=== PATIENT | male | born 1980 | race Caucasian/White ===

== ENCOUNTER → 2018-04-20 | Outpatient (CLI) | payer OTHER ==
--- NOTE | 2018-04-20 22:31 | MR ---
EXAMINATION TYPE: MR shoulder RT wo con DATE OF EXAM: 04/20/2018 COMPARISON: None HISTORY: Right shoulder pain TECHNIQUE: Multiplanar, multisequence imaging of the right shoulder is performed without contrast. FINDINGS: Rotator Cuff: Rotator cuff tendons appear intact. No retraction is evident. Muscle signal appears nor mal. No suspicious signal transversing the tendons are evident. There is a small cyst at the distal s upraspinatus tendon insertion. Acromioclavicular Joint: Acromioclavicular junction appears intact. No significant hypertrophy is teressa dent. Note is made of some downward sloping of the acromion which can contribute to impingement syndr ome. Glenohumeral Joint: Intact. Significant degenerative change is not evident. Labrum: There is increased signal within the superior posterior glenoid labrum. Some internal derange ment may be present. Biceps Tendon: The long head of biceps is in normal location within bicipital groove. Bone marrow signal: No focal abnormal marrow signal is appreciated. Other: No additional significant abnormality is appreciated. IMPRESSION: 1. No suspicious rotator cuff tear. 2. Posterior superior glenoid labral internal derangement may be present.
== END | disposition home or self-care (01) ==
LOC: RADMRIMAIN 10:58
PROVIDERS: ATTEND Family Medicine
DX: M25.511 Pain in right shoulder (principal); G89.29 Other chronic pain

== ENCOUNTER 2020-10-07 12:38 | Emergency (ER) | payer OTHER ==
[2020-10-07 12:57] VITALS: RESP 16; TEMP 97.3
[2020-10-07] MEDS ORDERED: SODIUM CHLORIDE 0.9% 1,000 ML IV ONE (13:07)
[2020-10-07] MEDS ORDERED: SODIUM CHLORIDE 0.9% 500 ML 500 ML IV ONE (13:07)
[2020-10-07] MEDS ORDERED: diphenhydrAMINE 50 MG/ML 1 ML VIAL IVP STA (13:07)
[2020-10-07] MEDS ORDERED: METOCLOPRAMIDE 5 MG/ML 2 ML VIAL IVP STA (13:08)
--- NOTE | 2020-10-07 13:10 | ED ---
General Adult HPI - General Chief complaint: Headache Stated complaint: headache, numbness to hands Time Seen by Provider: 10/07/20 12:55 Source: patient, RN notes reviewed, old records reviewed Mode of arrival: wheelchair Limitations: no limitations - History of Present Illness Initial comments: This is a 40-year-old male who presents emergency Department complaining of a right-sided headache. Patient states he's had a few migraines in the past always never been worked up for migraines. Patient states headaches are as on the right side of forehead and again today. The right side of his head the intensity is a little worse than normal and that is why he came in. Patient states she also had some tingling to his fingers on both hands and this time. Patient states he was pretty anxious when that was occurring currently is not occurring he has no tingling or weakness no visual disturbance or speech disturbance. Patient states ever since he had cold. His frequency of headaches are worse. Patient denies any trauma or injury. Patient denies any neck pain. Patient states he is somewhat photophobic and he is nauseated but has not vomite d. - Related Data Allergies Allergy/AdvReac Type Severity Reaction Status Date / Time Pork/Porcine Containing Allergy Unknown Verified 10/07/20 12:57 Products Review of Systems ROS Statement: Those systems with pertinent positive or pertinent negative responses have been documented in the HPI. ROS Other: All systems not noted in ROS Statement are negative. Past Medical History Additional Past Medical History / Comment(s): migraines History of Any Multi-Drug Resistant Organisms: None Reported Past Surgical History: No Surgical Hx Reported Past Psychological History: No Psychological Hx Reported Smoking Status: Never smoker Past Alcohol Use History: Occasional Past Drug Use History: None Reported General Exam - General Exam Comments Initial Comments: GENERAL: Patient is well-developed and well-nourished. Patient is nontoxic and well- hydrated and is in mild distress. ENT: Neck is soft and supple. No significant lymphadenopathy is noted. Oropharynx is clear. Moist mucous membranes. Neck has full range of motion without eliciting any pain. Patient has no scalp tenderness. Patient has no sinus tenderness EYES: The sclera were anicteric and conjunctiva were pink and moist. Extraocular movements were intact and pupils were equal round and reactive to light. Eyelids were unremarkable. PULMONARY: Unlabored respirations. Good breath sounds bilaterally. No audible rales rhonchi or wheezing was noted. CARDIOVASCULAR: There is a regular rate and rhythm without any murmurs gallops or rubs. ABDOMEN: Soft and nontender with normal bowel sounds. SKIN: Skin is clear with no lesions or rashes and otherwise unremarkable. NEUROLOGIC: Patient is alert and oriented x3. Cranial nerves II through XII are grossly intact. Motor and sensory are also intact. Normal speech, volume and content. Symmetrical smile. MUSCULOSKELETAL: Normal extremities with adequate strength and full range of motion. LYMPHATICS: No significant lymphadenopathy is noted PSYCHIATRIC: Normal psychiatric evaluation. Limitations: no limitations Course Vital Signs 10/07/20 10/07/20 12:55 14:13 Temperature 97.3 F L Pulse Rate 74 53 L Respiratory 16 16 Rate Blood Pressure 109/76 112/73 O2 Sat by Pulse 100 100 Oximetry Medical Decision Making - Medical Decision Making Patient's CT of the brain shows no acute abnormality. Patient received Benadryl and Reglan and felt considerably better and the patient received Toradol and was feeling even more towards his baseline at this time. Patient states she still has a very slight headache but much improved. Patient was comfortable going home. Patient also received a liter and half of fluid. Disposition Clinical Impression: Migraine headache Disposition: HOME SELF-CARE Condition: Good Instructions (If sedation given, give patient instructions): Migraine Headache (ED) Additional Instructions: Patient should take Excedrin when necessary for headache and follow-up with his primary care doctor for further workup Is patient prescribed a controlled substance at d/c from ED?: No Referrals: Kathya Wallace MD [Primary Care Provider] - 1-2 days Time of Disposition: 14:27
--- NOTE | 2020-10-07 14:05 | CT ---
EXAMINATION TYPE: CT brain wo con DATE OF EXAM: 10/07/2020 COMPARISON: None. HISTORY: new onset severe migraine, history of prior migraines CT DLP: 1092.4 mGycm. Automated Exposure Control for Dose Reduction was Utilized. TECHNIQUE: CT scan of the head is performed without contrast. FINDINGS: There is no acute intracranial hemorrhage, mass effect, or midline shift identified. The ventricles and sulci are within normal limits in size. Royal-white matter differentiation is maintain ed. The globes are intact and the visualized sinuses are clear. IMPRESSION: No acute intracranial hemorrhage, mass effect, or midline shift is seen.
[2020-10-07 14:19] VITALS: BP 112/73; PULSE 53
[2020-10-07] MEDS ORDERED: KETOROLAC 15 MG/ML 1 ML VIAL IVP STA (14:20)
== END 2020-10-07 14:40 | disposition home or self-care (01) ==
LOC: EC 12:38
DX: G43.909 Migraine, unspecified, not intractable, without status migrainosus (principal)
CPT/HCPCS: 70450; 99284; 96374; 96375 ×2; 96361; J1200; J2765; J1885